=== PATIENT | male | born 1995 | race Caucasian/White ===

== ENCOUNTER 2017-10-23 13:02 | Emergency (ER) | payer OTHER ==
[~2017-10-23] VITALS: Ht 177.8 cm; Wt 87.5 kg
[2017-10-23 13:10] VITALS: Ht 177.8 cm; Wt 87.5 kg
[2017-10-23 13:58] VITALS: BP 129/76
== END 2017-10-23 13:58 | disposition home or self-care (01) ==
LOC: ED 13:02
DX: L02.415 Cutaneous abscess of right lower limb (principal)